=== PATIENT | male | born 2000 | race Caucasian/White ===

== ENCOUNTER 2024-09-23 19:47 | Emergency (ER) | payer MEDICAID ==
[~2024-09-23] VITALS: Ht 170.2 cm; Wt 57.0 kg
[2024-09-23 19:54] VITALS: O2SAT 99
[2024-09-23] MEDS: FLUORESCEIN SODIUM 1MG/STRIP LEFTEYE ONE (21:15)
[2024-09-23] MEDS: PREDNISONE 20MG TABLET PO ONE (22:04)
[2024-09-23] MEDS: DIPHENHYDRAMINE 25MG CAPSULE PO ONE (22:04)
[2024-09-23] MEDS ORDERED: AMOX1TAB16 MT (22:34)
[2024-09-23] MEDS ORDERED: DIPH25CA83 MT (22:34)
[2024-09-23] MEDS ORDERED: P50 MT (22:34)
[2024-09-23 22:41] VITALS: BP 129/68; PULSE 73; RESP 18; TEMP 36.7; O2SAT 100
== END 2024-09-23 22:57 | disposition home or self-care (01) ==
LOC: ER 19:47
DX: H02.843 Edema of right eye, unspecified eyelid (principal); H02.846 Edema of left eye, unspecified eyelid
CPT/HCPCS: 99283; Q0163; J7512